=== PATIENT | female | born 1945 | race Caucasian/White ===

== ENCOUNTER 2016-08-03 20:26 | Inpatient (IN) | payer MEDICARE ==
[2016-08-03] MEDS ORDERED: Sodium Chloride 0.9% 1000 ML 1,000 ML ONE (20:31)
[2016-08-03] MEDS ORDERED: Sodium Chloride 0.9% 1000 ML 1,000 ML IV SCH (20:45)
[2016-08-03 21:10] LABS: BASOPHIL % 0.2 % (0.0-0.4); Eosinophil % 1.2 % (0.00-5.0); Lymphocytes % 22.9 % (24.0-44.0); Mean Cell Volume 96.7 fl (78-100); Mean Corpuscular Hemoglobin 32.4 pg (26-32); Mean Platelet Volume 9.4 fl (6-9.5); Monocytes % 8.7 % (0.0-12.0); Platelet Count 215 K/mm3 (150-450); Red Blood Count 4.29 M/mm3 (4.1-5.4); White Blood Count 8.1 K/mm3 (4.0-10.5)
[2016-08-03 21:14] LABS: Collection Type CATH
[2016-08-03 21:15] LABS: ADD URINE CULTURE? NO (NO); COMPLETE URINE MICROSCOPIC? NO
--- NOTE | 2016-08-03 21:22 | ERPHSYRPT ---
- History of Present Illness Time Seen by Provider: 08/03/16 21:20 Source: patient, family Exam Limitations: no limitations Patient Subjective Stated Complaint: states she has been weak and shaky for past few days some stomach pains and chest pains Triage Nursing Assessment: pt alert and oriented x3, very jittery hands shaking while shes laying in bed talking, lung sounds clear diminished, edema bilateral hands and feet Physician History: states she has been weak and shaky for past few days some stomach pains and chest pains c/o anxiety, feeling weak all over Timing/Duration: day(s) (2-3 days) Associated Symptoms: abdominal pain, chest pain Allergies/Adverse Reactions: ezetimibe [From Zetia] Allergy (Verified 10/30/11 11:51) Home Medications: Blood-Glucose Meter [[employer] Ultramini] 1 strip PRN 08/03/16 [History] Citalopram Hydrobromide [Citalopram HBr] 40 mg PO DAILY 08/03/16 [History] Clonazepam [Klonopin] 1 mg PO BID 08/03/16 [History] Clopidogrel Bisulfate 75 mg [PLAVIX 75 MG Tablet] 1 tab PO DAILY 08/03/16 [History] Clopidogrel Bisulfate [Plavix] 75 mg PO DAILY 08/03/16 [History] Dextrose [Glucose] 4 tab PO DAILY 08/03/16 [History] Diltiazem HCl [Cardizem Cd] 120 mg PO DAILY 08/03/16 [History] Eluxadoline [Viberzi] 75 mg PO BID 08/03/16 [History] Gabapentin 300 mg PO BID 08/03/16 [History] Hydrochlorothiazide 12.5 mg PO DAILY 08/03/16 [History] Insulin Aspart [Novolog Flexpen] 15 units SQ DAILY 08/03/16 [History] Insulin Aspart [NovoLOG Insulin] 15 unit SQ QAM 08/03/16 [History] Lisinopril 20 mg [Zestril 20 MG] 20 mg PO BID 08/03/16 [History] Loperamide HCl [Loperamide] 2 mg PO Q4H 08/03/16 [History] Meloxicam 7.5 mg [Mobic 7.5 MG] 1 tab PO DAILY 08/03/16 [History] Mirtazapine 30 mg [Remeron 30 mg] 30 mg PO QHS 08/03/16 [History] Naproxen 250 mg PO BID 08/03/16 [History] Omeprazole 40 mg PO DAILY 08/03/16 [History] Oxybutynin Chloride 5 mg PO BID 08/03/16 [History] Primidone 50 MG [Mysoline 50Mg] 50 mg PO TID 08/03/16 [History] Ropinirole HCl [Requip] 1 mg PO QHS 08/03/16 [History] Simvastatin 10 mg PO DAILY 08/03/16 [History] Sitagliptin Phosphate 50 MG [Januvia 50 MG] 1 tab PO DAILY 08/03/16 [ History] Tizanidine HCl 4 mg PO QHS 08/03/16 [History] Hx Tetanus, Diphtheria Vaccination/Date Given: Yes Hx Influenza Vaccination/Date Given: Yes Hx Pneumococcal Vaccination/Date Given: Yes Immunizations Up to Date: Yes - Review of Systems Constitutional: Fatigue, Weakness, No Fever, No Chills Eyes: No Symptoms Ears, Nose, & Throat: No Symptoms Respiratory: No Cough, No Dyspnea Cardiac: Chest Pain, No Edema, No Syncope Abdominal/Gastrointestinal: Abdominal Pain, No Nausea, No Vomiting, No Diarrhea Genitourinary Symptoms: No Dysuria Musculoskeletal: No Back Pain, No Neck Pain Skin: No Rash Neurological: No Dizziness, No Focal Weakness, No Sensory Changes Psychological: No Symptoms Endocrine: No Symptoms All Other Systems: Reviewed and Negative - Past Medical History Pertinent Past Medical History: Yes Neurological History: No Pertinent History ENT History: No Pertinent History Cardiac History: High Cholesterol, Hypertension Respiratory History: COPD Endocrine Medical History: Diabetes Type II Musculoskeletal History: No Pertinent History GI Medical History: No Pertinent History History: No Pertinent History Psycho-Social History: Depression Female Reproductive Disorders: No Pertinent History - Past Surgical History Past Surgical History: Yes Neuro Surgical History: No Pertinent History Cardiac: No Pertinent History Respiratory: No Pertinent History Gastrointestinal: Cholecystectomy Genitourinary: No Pertinent History Musculoskeletal: Orthopedic Surgery Female Surgical History: No Pertinent History Other Surgical History: left elbow and left shoulder surgery. - Social History Smoking Status: Current every day smoker Exposure to second hand smoke: No Drug Use: none Patient Lives Alone: No - Female History Hx Now: No - Nursing Vital Signs Nursing Vital Signs: Initial Vital Signs Temperature 99.2 F Temperature Source Oral Pulse Rate 90 Respiratory Rate 16 Blood Pressure [] 144/64 Pain Intensity 0 - Physical Exam General Appearance: no apparent distress, alert Eye Exam: PERRL/EOMI, eyes nml inspection Ears, Nose, Throat Exam: normal ENT inspection, TMs normal, pharynx normal, moist mucous membranes Neck Exam: normal inspection, non-tender, supple, full range of motion Respiratory Exam: normal breath sounds, lungs clear, No respiratory distress Cardiovascular Exam: regular rate/rhythm, normal heart sounds, normal peripheral pulses Gastrointestinal/Abdomen Exam: soft, normal bowel sounds, No tenderness, No mass Back Exam: normal inspection, normal range of motion, No CVA tenderness, No vertebral tenderness Extremity Exam: normal inspection, normal range of motion, pelvis stable Neurologic Exam: alert, oriented x 3, cooperative, normal mood/affect, nml cerebellar function, nml station & gait, sensation nml, No motor deficits Skin Exam: normal color, warm, dry, No rash Lymphatic Exam: No adenopathy SpO2: 96 Oxygen Delivery: Room Air - Course Nursing assessment & vital signs reviewed: Yes EKG Interpreted by Me: Sinus Rhythm, Other (paced rhythm) Rhythm Strip: Normal Sinus Rhythm - Radiology Exams Chest X-ray Interpretation: Reviewed by me, Negative, No Pneumonia, No Pneumothorax Ordered Tests: Active Orders 24 hr Category Date Time Status Bid Analyst STAT Care 08/03/16 20:58 Active EKG-ER Only STAT Care 08/03/16 20:57 Active IV Insertion STAT Care 08/03/16 20:58 Active CHEST 1 VIEW (PORTABLE) Stat Exams 08/03/16 20:44 Taken HEAD WITHOUT CONTRAST [CT] Stat Exams 08/03/16 22:11 Taken CBC W DIFF Stat Lab 08/03/16 21:04 Completed CMP Stat Lab 08/03/16 21:04 Completed UA W/RFX UR CULTURE Stat Lab 08/03/16 21:04 Completed Transfer Order Routine Transfer 08/03/16 23:08 Ordered Medication Summary Generic Name Dose Route Start Last Admin Trade Name Freq PRN Reason Stop Dose Admin Sodium Chloride 1,000 mls @ 100 mls/hr 08/03/16 20:45 08/03/16 20:55 Sodium Chloride 0.9% 1000 Ml IV 09/02/16 20:44 100 mls/hr .Q10H NERIS Administration Discontinued Medications Generic Name Dose Route Start Last Admin Trade Name Ester PRN Reason Stop Dose Admin Sodium Chloride Confirm 08/03/16 20:31 Sodium Chloride 0.9% 1000 Ml Administered 08/03/16 20:32 Dose 1,000 mls @ ud .ROUTE .STK-MED ONE Lorazepam Confirm 08/03/16 22:01 Ativan 2 Mg/1 Ml Vial Administered 08/03/16 22:02 Dose 2 mg .ROUTE .STK-MED ONE Lorazepam Confirm 08/03/16 22:08 Ativan 2 Mg/1 Ml Vial Administered 08/03/16 22:09 Dose 2 mg .ROUTE .STK-MED ONE Lorazepam 1 mg 08/03/16 22:44 08/03/16 22:47 Ativan 2 Mg/1 Ml Vial IV 08/03/16 22:45 1 mg STAT ONE Administration Lorazepam 2 mg 08/03/16 22:44 08/03/16 22:47 Ativan 2 Mg/1 Ml Vial IV 08/03/16 22:45 2 mg STAT ONE Administration Lab/Rad Data: Laboratory Result Diagrams 08/03/16 21:04 08/03/16 21:04 Laboratory Results 08/03/16 08/03/16 08/03/16 Range/Units 21:04 21:04 21:04 WBC 8.1 (4.0-10.5) K/mm3 RBC 4.29 (4.1-5.4) M/mm3 Hgb 13.9 (12.0-16.0) gm/dl Hct 41.5 (35-47) % MCV 96.7 (78-100) fl MCH 32.4 H (26-32) pg MCHC 33.5 (32-36) g/dl RDW 14.0 (11.5-14.0) % Plt Count 215 (150-450) K/mm3 MPV 9.4 (6-9.5) fl Gran % 67.0 H (36.0-66.0) % Lymphocytes % 22.9 L (24.0-44.0) % Monocytes % 8.7 (0.0-12.0) % Eosinophils % 1.2 (0.00-5.0) % Basophils % 0.2 (0.0-0.4) % Basophils # 0.02 (0-0.4) Sodium 140 (136-145) mEq/L Potassium 5.2 H (3.5-5.1) mEq/L Chloride 104 (98-107) mEq/L Carbon Dioxide 31.1 (21-32) mEq/L Anion Gap 10.0 (5-15) MEQ/L BUN 8 L (9-20) mg/dL Creatinine 1.15 (0.55-1.30) mg/dl Estimated GFR 49 ML/MIN Glucose 205 H (70-110) MG/DL Calcium 9.2 (8.5-10.1) mg/dL Total Bilirubin 0.3 (0.2-1.0) mg/dL AST 43 H (15-37) U/L ALT 49 (12-78) U/L Alkaline Phosphatase 120 H (46-116) U/L Serum Total Protein 6.2 L (6.4-8.2) gm/dL Albumin 3.4 (3.4-5.0) g/dL Ur Collection Type CATH Urine Color YELLOW (YELLOW) Urine Appearance CLEAR (CLEAR) Urine pH 7.0 (5-6) Ur Specific [place] 1.015 (1.005-1.025) Urine Protein NEGATIVE (Negative) Urine Glucose (UA) NEGATIVE (NEGATIVE) mg/dL Urine Ketones NEGATIVE (NEGATIVE) Urine Nitrite NEGATIVE (NEGATIVE) Urine Bilirubin NEGATIVE (NEGATIVE) Urine Urobilinogen 0.2 (0-1) mg/dL Urine WBC (Auto) NEGATIVE (NEGATIVE) Urine RBC (Auto) NEGATIVE (0-5) [place]/ul Influenza Type A Ag (NEGATIVE) Influenza Type B Ag (NEGATIVE) RSV (PCR) (Negative) Specimen Received [id number] 08/03/16 Range/Units 20:50 WBC (4.0-10.5) K/mm3 RBC (4.1-5.4) M/mm3 Hgb (12.0-16.0) gm/dl Hct (35-47) % MCV (78-100) fl MCH (26-32) pg MCHC (32-36) g/dl RDW (11.5-14.0) % Plt Count (150-450) K/mm3 MPV (6-9.5) fl Gran % (36.0-66.0) % Lymphocytes % (24.0-44.0) % Monocytes % (0.0-12.0) % Eosinophils % (0.00-5.0) % Basophils % (0.0-0.4) % Basophils # (0-0.4) Sodium (136-145) mEq/L Potassium (3.5-5.1) mEq/L Chloride (98-107) mEq/L Carbon Dioxide (21-32) mEq/L Anion Gap (5-15) MEQ/L BUN (9-20) mg/dL Creatinine (0.55-1.30) mg/dl Estimated GFR ML/MIN Glucose (70-110) MG/DL Calcium (8.5-10.1) mg/dL Total Bilirubin (0.2-1.0) mg/dL AST (15-37) U/L ALT (12-78) U/L Alkaline Phosphatase (46-116) U/L Serum Total Protein (6.4-8.2) gm/dL Albumin (3.4-5.0) g/dL Ur Collection Type Urine Color (YELLOW) Urine Appearance (CLEAR) Urine pH (5-6) Ur Specific [place] (1.005-1.025) Urine Protein (Negative) Urine Glucose (UA) (NEGATIVE) mg/dL Urine Ketones (NEGATIVE) Urine Nitrite (NEGATIVE) Urine Bilirubin (NEGATIVE) Urine Urobilinogen (0-1) mg/dL Urine WBC (Auto) (NEGATIVE) Urine RBC (Auto) (0-5) [place]/ul Influenza Type A Ag NEGATIVE (NEGATIVE) Influenza Type B Ag NEGATIVE (NEGATIVE) RSV (PCR) NEGATIVE (Negative) Specimen Received - Progress Progress: improved Counseled pt/family regarding: lab results, diagnosis, need for follow-up, rad results - Departure Time of Disposition: 23:14 Departure Disposition: Observation Clinical Impression: Weakness, Muscle spasm Diabetes mellitus Qualifiers: Diabetes mellitus complication status: without complication Diabetes mellitus mcfp insulin use: with terminal superintendent use Hypertension Qualifiers: Hypertension type: essential hypertension Qualified Code(s): I10 - Essential ( primary) hypertension Condition: Stable Critical Care Time: Yes Critical Care Time(excluding separately billable procedures): 30-74 minutes Referrals: MALLY HUERTA MD [Primary Care Provider] -
[2016-08-03 21:27] LABS: ALBUMIN 3.4 g/dL (3.4-5.0); BILIRUBIN,TOTAL 0.3 mg/dL (0.2-1.0); Carbon Dioxide 31.1 mEq/L (21-32); Potassium 5.2 mEq/L (3.5-5.1); Total Protein 6.2 gm/dL (6.4-8.2)
[2016-08-03] MEDS ORDERED: Ativan 2 MG/1 ML VIAL ONE ×2 (22:01→22:08)
[2016-08-03] MEDS ORDERED: Ativan 2 MG/1 ML VIAL IV ONE ×2 (22:44)
[2016-08-04] MEDS ORDERED: NovoLOG Insulin SQ PRN (00:43)
[2016-08-04] MEDS: Sodium Chloride 0.9% 1000 ML 1,000 ML IV SCH ×3 (02:10→16:01)
[2016-08-04] MEDS: Ativan 2 MG/1 ML VIAL IV PRN ×3 (02:16→17:58)
[2016-08-04 05:54] LABS: ALBUMIN 2.7 g/dL (3.4-5.0); ANION GAP 8.7 MEQ/L (5-15); BILIRUBIN,TOTAL 0.3 mg/dL (0.2-1.0); Carbon Dioxide 30.1 mEq/L (21-32); Potassium 4.1 mEq/L (3.5-5.1); Total Protein 5.2 gm/dL (6.4-8.2)
[2016-08-04] MEDS ORDERED: Dex4 Glucose 4 GM TABLET PO PRN (07:56)
[2016-08-04] MEDS ORDERED: IMODIUM 2 MG PO PRN (07:56)
--- NOTE | 2016-08-04 08:11 | XRAY ---
Indication: Chest pain, shakiness, and weakness. Comparison: April 22, 2014. Portable chest again hyperinflated with calcified granulomas and left-sided dual-lead pacemaker. Remaining heart and lungs normal. Bony thorax intact again with osteopenia and old left humeral fracture with partially visualized hardware. Impression: Stable nonacute chest with chronic features.
--- NOTE | 2016-08-04 08:28 | XRAY ---
Indication: Tremors, possible seizure, and confusion. Multiple contiguous axial images obtained through the head without contrast. Comparison: March 28, 2013. 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 No acute intracranial hemorrhage, hydrocephalus, or mass effect. Bony calvarium intact. Visualized paranasal sinuses and mastoid air cells are pneumatized and clear. Impression: Stable nonacute senile brain with old left occipital lobe infarct. Comment: Preliminary interpretation was made by [facility]. No discrepancy. CTDI 57.57
[2016-08-04] MEDS: NovoLOG Insulin SQ SCH (08:32)
--- NOTE | 2016-08-04 09:32 | PCM.HP ---
History of Present Illness - Chief Complaint Chief Complaint: Weakness, generalized muscle spasams for 2-3 days History of Present Illness: is a 71 year old female.came to ER with c/o generalised weakness, muscle spasm for 2-3 days and also c/o fever low grade. Denies any nausea, vomiting, - Review of Systems Constitutional: Fever, Chills, Malaise, Weakness Eyes: No Symptoms Ears, Nose, & Throat: No Symptoms Respiratory: No Cough, No Short Of Breath Cardiac: No Chest Pain, No Edema, No Syncope Abdominal/Gastrointestinal: No Abdominal Pain, No Nausea, No Vomiting, No Diarrhea Genitourinary Symptoms: No Dysuria Musculoskeletal: Other (generalised muscle spasm and shakiness), No Back Pain, No Neck Pain Skin: No Rash Neurological: No Dizziness, No Focal Weakness, No Sensory Changes Psychological: No Symptoms Endocrine: No Symptoms Hematologic/Lymphatic: No Symptoms Immunological/Allergic: No Symptoms Medications & Allergies Home Medications: Home Medication List Citalopram Hydrobromide [Citalopram HBr] 40 mg PO DAILY 08/03/16 [History Confirmed 08/03/16] Clonazepam [Klonopin] 1 mg PO BID 08/03/16 [History Confirmed 08/03/16] Clopidogrel Bisulfate 75 mg [PLAVIX 75 MG Tablet] 1 tab PO DAILY 08/03/16 [History Confirmed 08/03/16] Dextrose [Glucose] 4 tab PO DAILY PRN 08/03/16 [History Confirmed 08/03/16] Diltiazem HCl [Cardizem Cd] 120 mg PO DAILY 08/03/16 [History Confirmed 08/03/16 ] Eluxadoline [Viberzi] 75 mg PO BID 08/03/16 [History Confirmed 08/03/16] Gabapentin 300 mg PO BID 08/03/16 [History Confirmed 08/03/16] Hydrochlorothiazide 12.5 mg PO DAILY 08/03/16 [History Confirmed 08/03/16] Insulin Aspart [NovoLOG Insulin] 15 unit SQ QAM 08/03/16 [History Confirmed 08/03/16] Lisinopril 20 mg [Zestril 20 MG] 20 mg PO BID 08/03/16 [History Confirmed 08/03/16] Loperamide HCl [Loperamide] 2 mg PO Q4HPRN PRN 08/03/16 [History Confirmed 08/04] Meloxicam 7.5 mg [Mobic 7.5 MG] 7.5 mg PO DAILY 08/03/16 [History Confirmed 08/04/16] Mirtazapine 30 mg [Remeron 30 mg] 30 mg PO QHS 08/03/16 [History Confirmed 08/03/16] Naproxen 250 mg PO BID 08/03/16 [History Confirmed 08/03/16] Omeprazole 40 mg PO DAILY 08/03/16 [History Confirmed 08/03/16] Oxybutynin Chloride 5 mg PO BID 08/03/16 [History Confirmed 08/03/16] Primidone 50 MG [Mysoline 50Mg] 50 mg PO TID 08/03/16 [History Confirmed 11/12] Ropinirole HCl [Requip] 1 mg PO QHS 08/03/16 [History Confirmed 08/03/16] Simvastatin 10 mg PO DAILY 08/03/16 [History Confirmed 08/03/16] Sitagliptin Phosphate 50 MG [Januvia 50 MG] 50 mg PO DAILY 08/03/16 [ History Confirmed 08/04/16] Tizanidine HCl 4 mg PO QHS 08/03/16 [History Confirmed 08/03/16] Diphenoxylate HCl/Atropine [Diphenoxylate-Atrop 2.5-0.025] 2 tab PO QID [History Confirmed 08/04/16] Allergies/Adverse Reactions: Allergies Allergy/AdvReac Type Severity Reaction Status Date / Time ezetimibe [From Zetia] Allergy Verified 10/30/11 11:51 - Past Medical History Past Medical History: Yes Neurological History: Peripheral Neuropathy, Stroke ENT History: Other Cardiac History: Arrhythmia, High Cholesterol, Hypertension, Other Respiratory History: COPD Endocrine Medical History: Diabetes Type II Musculoskelatal History: Arthritis, Fractures GI Medical History: GERD, Pancreatitis, Other History: No Pertinent History Pyscho-Social History: Depression Reproductive Disorders: No Pertinent History Comment: Irritable Bowel Syndrome, hx of skin CA. 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 Hx of Hepatitis pt unsure which kind - Female History Hx Last Menstrual Period: post Are you now?: No - Past Surgical History Past Surgical History: Yes Neuro Surgical History: No Pertinent History Cardiac History: Pacemaker Respiratory Surgery: No Pertinent History GI Surgical History: Cholecystectomy Genitourinary Surgical Hx: No Pertinent History Musculskeletal Surgical Hx: Orthopedic Surgery Female Surgical History: No Pertinent History Other Surgical History: left elbow and left shoulder surgery with dale placement - Social History Smoking Status: Current every day smoker How long have you smoked: 40 yrs Exposure to second hand smoke: No Alcohol: None Drug Use: none - Physical Exam Vital Signs: Vital Signs - 24 hr Temp Pulse Resp BP BP Pulse Ox 08/04/16 07:23 98.3 F 69 18 140/71 95 08/04/16 04:00 98.4 F 70 14 124/60 93 L 08/04/16 01:25 98.3 F 70 18 125/60 93 L 08/03/16 23:14 96 08/03/16 22:07 90 16 144/64 95 08/03/16 20:27 99.2 F 74 20 205/86 96 General Appearance: no apparent distress, alert Neurologic Exam: alert, oriented x 3, cooperative, normal mood/affect, nml cerebellar function, nml station & gait, sensation nml, No motor deficits Eye Exam: PERRL/EOMI, eyes nml inspection Ears, Nose, Throat Exam: normal ENT inspection, TMs normal, pharynx normal, moist mucous membranes Neck Exam: normal inspection, non-tender, supple, full range of motion Respiratory Exam: normal breath sounds, lungs clear, No respiratory distress Cardiovascular Exam: regular rate/rhythm, normal heart sounds, normal peripheral pulses Gastrointestinal/Abdomen Exam: soft, normal bowel sounds, No tenderness, No mass Back Exam: normal inspection, normal range of motion, No CVA tenderness, No vertebral tenderness Extremity Exam: normal inspection, normal range of motion, pelvis stable Skin Exam: normal color, warm, dry, No rash Lymphatic Exam: No adenopathy Results - Labs Lab/Micro Results: Accuchecks Date 08/04/16 Time 07:18 Accucheck Value: 91 Lab Results-Last 24 Hours 08/04/16 Range/Units 05:19 Sodium 143 (136-145) mEq/L Potassium 4.1 (3.5-5.1) mEq/L Chloride 108 H (98-107) mEq/L Carbon Dioxide 30.1 (21-32) mEq/L Anion Gap 8.7 (5-15) MEQ/L BUN 9 (9-20) mg/dL Creatinine 1.07 (0.55-1.30) mg/dl Estimated GFR 53 ML/MIN Glucose 101 (70-110) MG/DL Calcium 8.4 L (8.5-10.1) mg/dL Total Bilirubin 0.3 (0.2-1.0) mg/dL AST 34 (15-37) U/L ALT 38 (12-78) U/L Alkaline Phosphatase 99 (46-116) U/L Serum Total Protein 5.2 L (6.4-8.2) gm/dL Albumin 2.7 L (3.4-5.0) g/dL Accuchecks Date 08/04/16 Time 07:18 Accucheck Value: 91 Assessment/Plan (1) Muscle spasm Current Visit: Yes Status: Acute Assessment & Plan: Mostlikely due to drug interaction, will hold some of her home meds Code(s): M62.838 - OTHER MUSCLE SPASM (2) Weakness Current Visit: Yes Status: Acute Assessment & Plan: continue present management. Last Vital Signs Temp 98.3 F 08/04/16 07:23 Pulse 69 08/04/16 07:23 Resp 18 08/04/16 07:23 BP 140/71 08/04/16 07:23 Pulse Ox 95 08/04/16 07:23 Allergies ezetimibe [From Zetia] Allergy (Verified 10/30/11 11:51) Active Medications Citalopram Hydrobromide (Celexa 20 Mg) 20 mg PO DAILY NERIS Stop: 09/03/16 09:59 Clonazepam (Klonopin 0.5 Mg) 1 mg PO BID NERIS Stop: 09/03/16 09:59 Clopidogrel Bisulfate (Plavix 75 Mg Tablet) 75 mg PO DAILY NERIS Stop: 09/03/16 09:59 Diltiazem HCl (Cardizem Cd 120 Mg) 120 mg PO DAILY NERIS Stop: 09/03/16 09:59 Enoxaparin Sodium (Enoxaparin Sodium) 40 mg SQ DAILY NERIS Stop: 09/03/16 09:59 Gabapentin (Neurontin 300 Mg) 300 mg PO BID [facility] Stop: 09/03/16 09:59 Glucose (Dex4 Glucose 4 Gm Tablet) 4 tab PO DAILY PRN PRN PRN Reason: HYPOGLYCEMIA Stop: 09/03/16 07:55 Hydrochlorothiazide (Hydrodiuril 25 Mg) 12.5 mg PO DAILY [facility] Stop: 09/03/16 09:59 Sodium Chloride (Sodium Chloride 0.9% 1000 Ml) 1,000 mls @ 100 mls/hr IV .Q10H NERIS Stop: 09/03/16 00:42 Last Admin: 08/04/16 06:20 Dose: 100 mls/hr Insulin Aspart (Novolog Insulin) 0 unit SQ UD PRN PRN Reason: HYPERGLYCEMIA Stop: 09/03/16 00:42 Insulin Aspart (Novolog Insulin) 15 unit SQ AMINSULIN NERIS Stop: 09/03/16 07:59 Last Admin: 08/04/16 08:32 Dose: Not Given Lisinopril (Zestril 20 Mg) 20 mg PO BID [facility] Stop: 09/03/16 09:59 Loperamide HCl (Imodium 2 Mg) 2 mg PO Q4HPRN PRN PRN Reason: DIARRHEA Stop: 09/03/16 07:55 Lorazepam (Ativan 2 Mg/1 Ml Vial) 1 mg IV PRN PRN PRN Reason: ANXIETY/AGITATION Stop: 09/03/16 00:42 Last Admin: 08/04/16 02:16 Dose: 1 mg Meloxicam (Mobic 7.5 Mg) 7.5 mg PO DAILY [facility] Stop: 09/03/16 09:59 Naproxen (Naprosyn 500 Mg) 250 mg PO BID [facility] Stop: 09/03/16 09:59 Pantoprazole Sodium (Protonix 40mg Tablet) 40 mg PO DAILY [facility] Stop: 09/03/16 09:59 Primidone (Mysoline 50mg) 50 mg PO TID [facility] Stop: 09/03/16 09:59 Ropinirole HCl (Requip 0.5 Mg) 1 mg PO HS [facility] Stop: 09/03/16 21:59 Sitagliptin Phosphate (Januvia 50 Mg) 50 mg PO DAILY [facility] Stop: 09/03/16 09:59 Intake & Output 08/03/16 08/04/16 11:59 11:59 Intake Total 770 Output Total 300 Balance 470 Weight 64.818 kg Orders 08/04/16 00:43 Up Ad Katie ROUTINE Accucheck ACHS Admission/Status Order ROUTINE Code Status Order ROUTINE Fall Protocol Q1H IV Care Q6H Neuro Checks Q4H Josiah Porter, Apply ROUTINE Telemetry ROUTINE Insulin Aspart [NovoLOG Insulin] See Dose Instructions SQ UD PRN Lorazepam 2 mg/1 ml [Ativan 2 MG/1 ML VIAL] 1 mg IV PRN PRN NaCl 0.9% 1000 ml [Sodium Chloride 0.9% 1000 ML] 1,000 ml IV 100 mls/hr 08/04/16 07:56 Dextrose 4 gm Tablet [Dex4 Glucose 4 GM TABLET] 4 tab PO DAILY PRN PRN Loperamide HCl 2 mg [Imodium 2 mg] 2 mg PO Q4HPRN PRN 08/04/16 08:00 Insulin Aspart [NovoLOG Insulin] 15 unit SQ AMINSULIN 08/04/16 09:00 Kidney Puller/Discharge Plan ROUTINE Nutritional Admission Screen once OT Screen per Nursing Assess ONCE PT Screen per Nursing Assess ONCE 08/04/16 10:00 Citalopram Hydrobromide 20 mg* [ceLEXa 20 MG] 20 mg PO DAILY Clonazepam 0.5 mg [Klonopin 0.5 MG] 1 mg PO BID Clopidogrel Bisulfate 75 mg [PLAVIX 75 MG Tablet] 75 mg PO DAILY Diltiazem HCl 120 mg [Cardizem CD 120 MG] 120 mg PO DAILY Enoxaparin Sodium [Enoxaparin Sodium] 40 mg SQ DAILY Gabapentin 300 mg [Neurontin 300 mg] 300 mg PO BID Hydrochlorothiazide 25 mg [hydroDIURIL 25 MG] 12.5 mg PO DAILY Lisinopril 20 mg [Zestril 20 MG] 20 mg PO BID Meloxicam 7.5 mg [Mobic 7.5 MG] 7.5 mg PO DAILY Naproxen 500 mg [Naprosyn 500 MG] 250 mg PO BID PANTOPRAZOLE 40 mg Tablet [Protonix 40MG Tablet] 40 mg PO DAILY Primidone 50 MG [Mysoline 50Mg] 50 mg PO TID Sitagliptin Phosphate 50 MG [Januvia 50 MG] 50 mg PO DAILY 08/04/16 22:00 Ropinirole HCl 0.5 mg [Requip 0.5 MG] 1 mg PO HS 08/04/16 Breakfast 1800 Calorie ADA Lab Tests 08/03/16 08/03/16 08/03/16 20:50 21:04 21:04 WBC 8.1 RBC 4.29 Hgb 13.9 Hct 41.5 MCV 96.7 MCH 32.4 H MCHC 33.5 RDW 14.0 Plt Count 215 MPV 9.4 Gran % 67.0 H Lymphocytes % 22.9 L Monocytes % 8.7 Eosinophils % 1.2 Basophils % 0.2 Basophils # 0.02 Sodium 140 Potassium 5.2 H Chloride 104 Carbon Dioxide 31.1 Anion Gap 10.0 BUN 8 L Creatinine 1.15 Estimated GFR 49 Glucose 205 H Calcium 9.2 Total Bilirubin 0.3 AST 43 H ALT 49 Alkaline Phosphatase 120 H Serum Total Protein 6.2 L Albumin 3.4 Ur Collection Type Urine Color Urine Appearance Urine pH Ur Specific [place] Urine Protein Urine Glucose (UA) Urine Ketones Urine Nitrite Urine Bilirubin Urine Urobilinogen Urine WBC (Auto) Urine RBC (Auto) Influenza Type A Ag NEGATIVE Influenza Type B Ag NEGATIVE RSV (PCR) NEGATIVE Specimen Received 08/03/16 08/04/16 21:04 05:19 WBC RBC Hgb Hct MCV MCH MCHC RDW Plt Count MPV Gran % Lymphocytes % Monocytes % Eosinophils % Basophils % Basophils # Sodium 143 Potassium 4.1 Chloride 108 H Carbon Dioxide 30.1 Anion Gap 8.7 BUN 9 Creatinine 1.07 Estimated GFR 53 Glucose 101 Calcium 8.4 L Total Bilirubin 0.3 AST 34 ALT 38 Alkaline Phosphatase 99 Serum Total Protein 5.2 L Albumin 2.7 L Ur Collection Type CATH Urine Color YELLOW Urine Appearance CLEAR Urine pH 7.0 Ur Specific [place] 1.015 Urine Protein NEGATIVE Urine Glucose (UA) NEGATIVE Urine Ketones NEGATIVE Urine Nitrite NEGATIVE Urine Bilirubin NEGATIVE Urine Urobilinogen 0.2 Urine WBC (Auto) NEGATIVE Urine RBC (Auto) NEGATIVE Influenza Type A Ag Influenza Type B Ag RSV (PCR) Specimen Received [id number] Code(s): R53.1 - WEAKNESS (3) Diabetes mellitus Current Visit: Yes Status: Chronic Qualifiers: Diabetes mellitus complication status: without complication Diabetes mellitus termite technician insulin use: with jail use Code(s): E11.9 - TYPE 2 DIABETES MELLITUS WITHOUT COMPLICATIONS (4) Hypertension Current Visit: Yes Status: Chronic Qualifiers: Hypertension type: essential hypertension Qualified Code(s): I10 - Essential (primary) hypertension Code(s): I10 - ESSENTIAL (PRIMARY) HYPERTENSION (5) Bradyarrhythmia Current Visit: Yes Status: Chronic Assessment & Plan: s/p pacemaker Code(s): I49.8 - OTHER SPECIFIED CARDIAC ARRHYTHMIAS
[2016-08-04] MEDS ORDERED: NON-FORMULARY ITEM (Omeprazole [Omeprazole] 40 MG) PO SCH (10:00)
[2016-08-04] MEDS ORDERED: NON-FORMULARY ITEM (Hydrochlorothiazide [Hydrochlorothiazide] 12.5 MG) PO SCH (10:00)
[2016-08-04] MEDS ORDERED: NON-FORMULARY ITEM (Citalopram Hydrobromide [Citalopram Hbr] 40 MG) PO SCH (10:00)
[2016-08-04] MEDS ORDERED: NAPROXEN 250 MG PO SCH (10:00)
[2016-08-04] MEDS ORDERED: NON-FORMULARY ITEM (Clonazepam [Klonopin] 1 MG) PO SCH (10:00)
[2016-08-04] MEDS: MYSOLINE 50MG PO SCH ×3 (10:29→21:41)
[2016-08-04] MEDS: Januvia 50 MG PO SCH (10:29)
[2016-08-04] MEDS: ENOXAPARIN SODIUM SQ SCH (10:29)
[2016-08-04] MEDS: Klonopin 0.5 MG PO SCH ×2 (10:29→21:40)
[2016-08-04] MEDS: hydroDIURIL 25 MG PO SCH (10:30)
[2016-08-04] MEDS: PLAVIX 75 MG Tablet PO SCH (10:31)
[2016-08-04] MEDS: Protonix 40MG Tablet PO SCH (10:31)
[2016-08-04] MEDS: Mobic 7.5 MG PO SCH (10:31)
[2016-08-04] MEDS: Zestril 20 MG PO SCH ×2 (10:31→21:41)
[2016-08-04] MEDS: Cardizem CD 120 MG PO SCH (10:31)
[2016-08-04] MEDS: ceLEXa 20 MG PO SCH (10:32)
[2016-08-04] MEDS: Naprosyn 500 MG PO SCH ×2 (10:32→21:41)
[2016-08-04] MEDS: NEURONTIN 300 MG PO SCH ×2 (10:32→21:42)
[2016-08-04] MEDS: Requip 0.5 MG PO SCH (21:40)
[2016-08-04] MEDS ORDERED: NON-FORMULARY ITEM (Ropinirole Hcl [Requip] 1 MG) PO SCH (22:00)
[2016-08-05] MEDS: Sodium Chloride 0.9% 1000 ML 1,000 ML IV SCH ×3 (01:49→21:27)
[2016-08-05] MEDS: NovoLOG Insulin SQ SCH (07:57)
[2016-08-05] MEDS: ENOXAPARIN SODIUM SQ SCH (07:58)
[2016-08-05] MEDS: Protonix 40MG Tablet PO SCH (08:00)
[2016-08-05] MEDS: Mobic 7.5 MG PO SCH (08:00)
[2016-08-05] MEDS: Zestril 20 MG PO SCH ×2 (08:00→21:26)
[2016-08-05] MEDS: ceLEXa 20 MG PO SCH (08:00)
[2016-08-05] MEDS: Naprosyn 500 MG PO SCH ×2 (08:00→21:25)
[2016-08-05] MEDS: Januvia 50 MG PO SCH (08:02)
[2016-08-05] MEDS: PLAVIX 75 MG Tablet PO SCH (08:02)
[2016-08-05] MEDS: hydroDIURIL 25 MG PO SCH (08:02)
[2016-08-05] MEDS: Klonopin 0.5 MG PO SCH ×2 (08:02→21:24)
[2016-08-05] MEDS: NEURONTIN 300 MG PO SCH ×2 (08:02→21:25)
[2016-08-05] MEDS: MYSOLINE 50MG PO SCH ×3 (08:02→21:25)
[2016-08-05] MEDS: Cardizem CD 120 MG PO SCH (08:02)
[2016-08-05] MEDS: Ativan 2 MG/1 ML VIAL IV PRN ×3 (08:12→17:17)
[2016-08-05] MEDS: Requip 0.5 MG PO SCH (21:25)
[2016-08-06] MEDS: Sodium Chloride 0.9% 1000 ML 1,000 ML IV SCH (06:39)
[2016-08-06] MEDS: NovoLOG Insulin SQ SCH (08:00)
[2016-08-06] MEDS: Ativan 2 MG/1 ML VIAL IV PRN (08:34)
[2016-08-06] MEDS: hydroDIURIL 25 MG PO SCH (10:19)
[2016-08-06] MEDS: NEURONTIN 300 MG PO SCH (10:20)
[2016-08-06] MEDS: Cardizem CD 120 MG PO SCH (10:21)
[2016-08-06] MEDS: Januvia 50 MG PO SCH (10:21)
[2016-08-06] MEDS: ENOXAPARIN SODIUM SQ SCH (10:21)
[2016-08-06] MEDS: Protonix 40MG Tablet PO SCH (10:21)
[2016-08-06] MEDS: Klonopin 0.5 MG PO SCH (10:22)
[2016-08-06] MEDS: ceLEXa 20 MG PO SCH (10:22)
[2016-08-06] MEDS: PLAVIX 75 MG Tablet PO SCH (10:22)
[2016-08-06] MEDS: Zestril 20 MG PO SCH (10:23)
[2016-08-06] MEDS: Mobic 7.5 MG PO SCH (10:23)
[2016-08-06 12:16] VITALS: BP 192/86; PULSE 68; O2SAT 94
--- NOTE | 2016-08-06 13:36 | PCM.NOTE ---
Date and Time: 08/05/16 3394 Subjective Assessment: late entry: Patient is still having spasm - Review of Systems Constitutional: No Fever, No Chills Eyes: No Symptoms Ears, Nose, & Throat: No Symptoms Respiratory: No Cough, No Short Of Breath Cardiac: No Chest Pain, No Edema, No Syncope Abdominal/Gastrointestinal: No Abdominal Pain, No Nausea, No Vomiting, No Diarrhea Genitourinary Symptoms: No Dysuria Musculoskeletal: No Back Pain, No Neck Pain Skin: No Rash Neurological: Tremors, No Dizziness, No Focal Weakness, No Sensory Changes Psychological: No Symptoms Endocrine: No Symptoms Hematologic/Lymphatic: No Symptoms Immunological/Allergic: No Symptoms Objective Exam General Appearance: no apparent distress, alert Neurologic Exam: alert, oriented x 3, cooperative, normal mood/affect, nml cerebellar function, sensation nml, No motor deficits Skin Exam: normal color, warm, dry Eye Exam: PERRL, EOMI, eyes nml inspection Ears, Nose, Throat Exam: normal ENT inspection, pharynx normal, moist mucous membranes Neck Exam: normal inspection, non-tender, supple, full range of motion Respiratory Exam: normal breath sounds, lungs clear, No respiratory distress Cardiovascular Exam: regular rate/rhythm, normal heart sounds Gastrointestinal/Abdomen Exam: soft, No tenderness, No mass Extremity Exam: normal inspection, normal range of motion Back Exam: normal inspection, normal range of motion, No CVA tenderness, No vertebral tenderness Pelvic Exam: deferred Rectal Exam: deferred OBJECTIVE DATA Vital Signs: Vital Signs - 24 hr Temp Pulse Resp BP Pulse Ox 08/06/16 12:00 99.0 F 68 18 192/86 94 L 08/06/16 07:27 98.4 F 71 20 133/63 95 08/06/16 04:00 98.6 F 80 14 170/60 92 L 08/06/16 00:25 98.7 F 74 14 165/71 94 L 08/05/16 23:48 98.8 F 73 14 155/69 94 L 08/05/16 20:00 98.8 F 73 14 155/69 94 L 08/05/16 16:00 98.8 F 84 17 187/82 94 L Intake and Output: Intake & Output 08/04/16 08/05/16 08/06/16 08/07/16 11:59 11:59 11:59 11:59 Intake Total 3389 Output Total 3200 Balance 189 Lab Results: Accuchecks Date 08/06/16 Date 08/06/16 Date 08/05/16 Date 08/05/16 Time 11:30 Time 07:00 Time 16:30 Time 16:04 Accucheck Value: 119 Accucheck Value: 96 Accucheck Value: 156 Accucheck Value: 156 Assessment/Plan (1) Muscle spasm Status: Acute Code(s): M62.838 - OTHER MUSCLE SPASM (2) Weakness Status: Resolved Code(s): R53.1 - WEAKNESS (3) Diabetes mellitus Status: Chronic Qualifiers: Diabetes mellitus complication status: without complication Diabetes mellitus nursing home insulin use: with nursing home use Code(s): E11.9 - TYPE 2 DIABETES MELLITUS WITHOUT COMPLICATIONS (4) Hypertension Status: Chronic Qualifiers: Hypertension type: essential hypertension Qualified Code(s): I10 - Essential (primary) hypertension Code(s): I10 - ESSENTIAL (PRIMARY) HYPERTENSION (5) Bradyarrhythmia Status: Chronic Code(s): I49.8 - OTHER SPECIFIED CARDIAC ARRHYTHMIAS
--- NOTE | 2016-08-06 13:38 | PCM.DS ---
Discharge Summary Date of Admission: 08/05/16 09:00 Admitting Physician: MALLY HUERTA Consults: Consults on Case 08/06/16 08:56 Consult Neurology ROUTINE Primary Care Provider: MALLY HUERTA Allergies Allergies ezetimibe [From Zetia] Allergy (Verified 10/30/11 11:51) Hospital Summary - Hospital Course Hospital Course: Chief Complaint Diagnosis TREMORS, WEAKNESS Allergies Allergy/AdvReac Type Severity Reaction Status Date / Time ezetimibe [From Zetia] Allergy Verified 10/30/11 11:51 Vital Signs (Last 24 hours) Temp Pulse Resp BP Pulse Ox 08/06/16 12:00 99.0 F 68 18 192/86 94 L 08/06/16 07:27 98.4 F 71 20 133/63 95 08/06/16 04:00 98.6 F 80 14 170/60 92 L 08/06/16 00:25 98.7 F 74 14 165/71 94 L 08/05/16 23:48 98.8 F 73 14 155/69 94 L 08/05/16 20:00 98.8 F 73 14 155/69 94 L 08/05/16 16:00 98.8 F 84 17 187/82 94 L Home Medications Medication Instructions Recorded Confirmed Last Taken Type Citalopram Hydrobromide 40 mg PO DAILY 08/03/16 08/03/16 Unknown History [Citalopram HBr] Clonazepam [Klonopin] 1 mg PO BID 08/03/16 08/03/16 Unknown History Clopidogrel Bisulfate 75 mg 1 tab PO DAILY 08/03/16 08/03/16 Unknown History [PLAVIX 75 MG Tablet] Dextrose [Glucose] 4 tab PO DAILY PRN 08/03/16 08/03/16 Unknown History Diltiazem HCl [Cardizem Cd] 120 mg PO DAILY 08/03/16 08/03/16 Unknown History Eluxadoline [Viberzi] 75 mg PO BID 08/03/16 08/03/16 Unknown History Gabapentin 300 mg PO BID 08/03/16 08/03/16 Unknown History Hydrochlorothiazide 12.5 mg PO DAILY 08/03/16 08/03/16 Unknown History Insulin Aspart [NovoLOG 15 unit SQ QAM 08/03/16 08/03/16 Unknown History Insulin] Lisinopril 20 mg [Zestril 20 20 mg PO BID 08/03/16 08/03/16 Unknown History MG] Loperamide HCl [Loperamide] 2 mg PO Q4HPRN PRN 08/03/16 08/04/16 Unknown History Meloxicam 7.5 mg [Mobic 7.5 7.5 mg PO DAILY 08/03/16 08/04/16 Unknown History MG] Mirtazapine 30 mg [Remeron 30 30 mg PO QHS 08/03/16 08/03/16 Unknown History mg] Naproxen 250 mg PO BID 08/03/16 08/03/16 Unknown History Omeprazole 40 mg PO DAILY 08/03/16 08/03/16 Unknown History Oxybutynin Chloride 5 mg PO BID 08/03/16 08/03/16 Unknown History Primidone 50 MG [Mysoline 50Mg] 50 mg PO TID 08/03/16 08/03/16 Unknown History Ropinirole HCl [Requip] 1 mg PO QHS 08/03/16 08/03/16 Unknown History Simvastatin 10 mg PO DAILY 08/03/16 08/03/16 Unknown History Sitagliptin Phosphate 50 MG 50 mg PO DAILY 08/03/16 08/04/16 Unknown History [Januvia 50 MG] Tizanidine HCl 4 mg PO QHS 08/03/16 08/03/16 Unknown History Diphenoxylate HCl/Atropine 2 tab PO QID 08/04/16 08/04/16 Unknown History [Diphenoxylate-Atrop 2.5-0.025] Current Medications Discontinued Medications Generic Name Dose Route Start Last Admin Trade Name Freq PRN Reason Stop Dose Admin Citalopram Hydrobromide 20 mg 08/04/16 10:00 08/06/16 10:22 Celexa 20 Mg PO 09/03/16 09:59 20 mg DAILY NERIS Administration Clonazepam 1 mg 08/04/16 10:00 08/06/16 10:22 Klonopin 0.5 Mg PO 09/03/16 09:59 1 mg BID NERIS Administration Clopidogrel Bisulfate 75 mg 08/04/16 10:00 08/06/16 10:22 Plavix 75 Mg Tablet PO 09/03/16 09:59 75 mg DAILY NERIS Administration Diltiazem HCl 120 mg 08/04/16 10:00 08/06/16 10:21 Cardizem Cd 120 Mg PO 09/03/16 09:59 120 mg DAILY NERIS Administration Enoxaparin Sodium 40 mg 08/04/16 10:00 08/06/16 10:21 Enoxaparin Sodium SQ 09/03/16 09:59 40 mg DAILY NERIS Administration Gabapentin 300 mg 08/04/16 10:00 08/06/16 10:20 Neurontin 300 Mg PO 09/03/16 09:59 300 mg BID NERIS Administration Glucose 4 tab 08/04/16 07:56 08/05/16 11:27 Dex4 Glucose 4 Gm Tablet PO 09/03/16 07:55 4 tab DAILY PRN PRN Administration HYPOGLYCEMIA Hydrochlorothiazide 12.5 mg 08/04/16 10:00 08/06/16 10:19 Hydrodiuril 25 Mg PO 09/03/16 09:59 12.5 mg DAILY NERIS Administration Sodium Chloride Confirm 08/03/16 20:31 Sodium Chloride 0.9% 1000 Ml Administered 08/03/16 20:32 Dose 1,000 mls @ ud .ROUTE .STK-MED ONE Sodium Chloride 1,000 mls @ 100 mls/hr 08/03/16 20:45 08/03/16 20:55 Sodium Chloride 0.9% 1000 Ml IV 09/02/16 20:44 100 mls/hr .Q10H NERIS Administration Sodium Chloride 1,000 mls @ 100 mls/hr 08/04/16 00:43 08/06/16 06:39 Sodium Chloride 0.9% 1000 Ml IV 09/03/16 00:42 100 mls/hr .Q10H NERIS Administration Insulin Aspart 0 unit 08/04/16 00:43 08/05/16 22:15 Novolog Insulin SQ 09/03/16 00:42 2 unit UD PRN Administration HYPERGLYCEMIA Insulin Aspart 15 unit 08/04/16 08:00 08/06/16 08:00 Novolog Insulin SQ 09/03/16 07:59 Not Given AMINSULIN NERIS Lisinopril 20 mg 08/04/16 10:00 08/06/16 10:23 Zestril 20 Mg PO 09/03/16 09:59 20 mg BID NERIS Administration Loperamide HCl 2 mg 08/04/16 07:56 Imodium 2 Mg PO 09/03/16 07:55 Q4HPRN PRN DIARRHEA Lorazepam Confirm 08/03/16 22:01 Ativan 2 Mg/1 Ml Vial Administered 08/03/16 22:02 Dose 2 mg .ROUTE .STK-MED ONE Lorazepam Confirm 08/03/16 22:08 Ativan 2 Mg/1 Ml Vial Administered 08/03/16 22:09 Dose 2 mg .ROUTE .STK-MED ONE Lorazepam 1 mg 08/03/16 22:44 08/03/16 22:47 Ativan 2 Mg/1 Ml Vial IV 08/03/16 22:45 1 mg STAT ONE Administration Lorazepam 2 mg 08/03/16 22:44 08/03/16 22:47 Ativan 2 Mg/1 Ml Vial IV 08/03/16 22:45 2 mg STAT ONE Administration Lorazepam 1 mg 08/04/16 00:43 08/06/16 08:34 Ativan 2 Mg/1 Ml Vial IV 09/03/16 00:42 1 mg PRN PRN Administration ANXIETY/AGITATION Meloxicam 7.5 mg 08/04/16 10:00 08/06/16 10:23 Mobic 7.5 Mg PO 09/03/16 09:59 7.5 mg DAILY NERIS Administration Naproxen 250 mg 08/04/16 10:00 08/05/16 21:25 Naprosyn 500 Mg PO 09/03/16 09:59 250 mg BID NERIS Administration Pantoprazole Sodium 40 mg 08/04/16 10:00 08/06/16 10:21 Protonix 40mg Tablet PO 09/03/16 09:59 40 mg DAILY NERIS Administration Primidone 50 mg 08/04/16 10:00 08/05/16 21:25 Mysoline 50mg PO 09/03/16 09:59 50 mg TID NERIS Administration Ropinirole HCl 1 mg 08/04/16 22:00 08/05/16 21:25 Requip 0.5 Mg PO 09/03/16 21:59 1 mg HS NERIS Administration Sitagliptin Phosphate 50 mg 08/04/16 10:00 08/06/16 10:21 Januvia 50 Mg PO 09/03/16 09:59 50 mg DAILY NERIS Administration Intake & Output (Last 24 hours) 08/04/16 08/05/16 08/06/16 08/07/16 11:59 11:59 11:59 11:59 Intake Total 770 3589 3389 Output Total 300 1800 3200 Balance 470 1789 189 Weight 64.818 kg Orders (Last 24 hours) Category Date Time Status Full admit [Change to Full Admit] ROUTINE Care 08/06/16 08:55 Active Miscellaneous Nursing Order ROUTINE Care 08/06/16 08:57 Active Consult Neurology ROUTINE Cons 08/06/16 08:56 Active Discharge Routine Discharge 08/06/16 11:05 Ordered Discharge/Telephone Order Routine Discharge 08/06/16 11:05 Active Patient Care Notes (Last 24 hours) 08/06/16 12:20 Nursing Note by Kathy Santoyo Discharge at this time. Initialized on 08/06/16 12:20 - END OF NOTE 08/06/16 11:45 Nursing Note by Kathy Santoyo Called Ana nurse at [facility] with report. Initialized on 08/06/16 11:45 - END OF NOTE 08/06/16 11:21 Nursing Note by Kathy Santoyo Called pt's daughter, Marylou, made aware of pt transferring today to [facility]. Initialized on 08/06/16 11:21 - END OF NOTE 08/06/16 11:04 Nursing Note by Kathy Santoyo Called Dr Huerta with update on pt; new order received to transfer. Initialized on 08/06/16 11:04 - END OF NOTE 08/06/16 11:01 Nursing Note by Ofe Maher AM Novolog held after talking with pts primary nurse re: yesterday's drop in blood sugar (see NN). Januvia given as scheduled, pt in agreement with this plan. Initialized on 08/06/16 11:01 - END OF NOTE 08/06/16 11:00 Nursing Note by Aurea Morrow Called [facility] transfer center to get a bed at [facility] per Dr. Huerta. Initialized on 08/06/16 11:00 - END OF NOTE 08/06/16 08:20 (created 08/06/16 08:54) Nursing Note by Kathy Santoyo Dr called and received update on pt. Received new orders. Initialized on 08/06/16 08:54 - END OF NOTE 08/05/16 17:30 (created 08/05/16 18:27) Nursing Note by Kathy Santoyo Dr made aware of tremor activity. Initialized on 08/05/16 18:27 - END OF NOTE - Vitals & Intake/Output Vital Signs: Vital Signs Temperature 99.0 F 08/06/16 12:00 Pulse Rate 68 08/06/16 12:00 Respiratory Rate 18 08/06/16 12:00 Blood Pressure 192/86 08/06/16 12:00 O2 Sat by Pulse Oximetry 94 L 08/06/16 12:00 Intake & Output: Intake & Output 08/04/16 08/05/16 08/06/16 08/07/16 11:59 11:59 11:59 11:59 Intake Total 3389 Output Total 3200 Balance 189 - Lab Result Diagrams: 08/03/16 21:04 08/04/16 05:19 Lab Results-Last 24 Hrs: Accuchecks Date 08/06/16 Date 08/06/1608/05/16 Date 08/05/16 Time 11:30 Time 07:00 Time 16:30 Time 16:04 Accucheck Value: 119 Accucheck Value: 96 Accucheck Value: 156 Accucheck Value: 156 Micro Results-Entire Visit: Accuchecks Date 08/06/1608/06/1608/05/16 Date 08/05/16 Time 11:30 Time 07:00 Time 16:30 Time 16:04 Accucheck Value: 119 Accucheck Value: 96 Accucheck Value: 156 Accucheck Value: 156 Discharge Exam General Appearance: no apparent distress, alert Neurologic Exam: alert, oriented x 3, cooperative, normal mood/affect, nml cerebellar function, sensation nml, No motor deficits Skin Exam: normal color, warm, dry Eye Exam: PERRL, EOMI, eyes nml inspection Ears, Nose, Throat Exam: normal ENT inspection, pharynx normal, moist mucous membranes Neck Exam: normal inspection, non-tender, supple, full range of motion Respiratory Exam: normal breath sounds, lungs clear, No respiratory distress Cardiovascular Exam: regular rate/rhythm, normal heart sounds Gastrointestinal/Abdomen Exam: soft, No tenderness, No mass Extremity Exam: normal inspection, normal range of motion Back Exam: normal inspection, normal range of motion, No CVA tenderness, No vertebral tenderness Pelvic Exam: deferred Rectal Exam: deferred Final Diagnosis/Problem List - Final Discharge Diagnosis/Problem (1) Muscle spasm Status: Acute Assessment & Plan: will transfer patient to [facility] for further evaluation (2) Weakness Status: Resolved (3) Diabetes mellitus Status: Chronic (4) Hypertension Status: Chronic (5) Bradyarrhythmia Status: Chronic - Discharge Discharge Date: 08/06/16 Disposition: DC TO [facility] Condition: Stable Prescriptions: No Action Dextrose [Glucose] 4 tab PO DAILY PRN PRN Reason: Hypoglycemia Citalopram Hydrobromide [Citalopram HBr] 40 mg PO DAILY Loperamide HCl [Loperamide] 2 mg PO Q4HPRN PRN PRN Reason: Diarrhea Naproxen 250 mg PO BID Meloxicam 7.5 mg [Mobic 7.5 MG] 7.5 mg PO DAILY Gabapentin 300 mg PO BID Hydrochlorothiazide 12.5 mg PO DAILY Omeprazole 40 mg PO DAILY Oxybutynin Chloride 5 mg PO BID Tizanidine HCl 4 mg PO QHS Primidone 50 MG [Mysoline 50Mg] 50 mg PO TID Mirtazapine 30 mg [Remeron 30 mg] 30 mg PO QHS Ropinirole HCl [Requip] 1 mg PO QHS Eluxadoline [Viberzi] 75 mg PO BID Clonazepam [Klonopin] 1 mg PO BID Lisinopril 20 mg [Zestril 20 MG] 20 mg PO BID Simvastatin 10 mg PO DAILY Clopidogrel Bisulfate 75 mg [PLAVIX 75 MG Tablet] 1 tab PO DAILY Diltiazem HCl [Cardizem Cd] 120 mg PO DAILY Sitagliptin Phosphate 50 MG [Januvia 50 MG] 50 mg PO DAILY Insulin Aspart [NovoLOG Insulin] 15 unit SQ QAM Diphenoxylate HCl/Atropine [Diphenoxylate-Atrop 2.5-0.025] 2 tab PO QID Follow up with: MALLY HUERTA MD [Primary Care Provider] -
== END 2016-08-06 12:20 | disposition short-term general hospital (02) | DRG 556 ==
LOC: ED 20:26 → MED SURG 08-04 00:12 → OBSVTOIN 08-05 09:00
PROVIDERS: ADMIT General Practice; ATTEND General Practice
DX: M62.838 Other muscle spasm (principal); E11.9 Type 2 diabetes mellitus without complications; Z79.4 Long term (current) use of insulin; R53.1 Weakness; I10 Essential (primary) hypertension; I49.8 Other specified cardiac arrhythmias; G62.9 Polyneuropathy, unspecified; J44.9 Chronic obstructive pulmonary disease, unspecified; R25.1 Tremor, unspecified; E78.00 Pure hypercholesterolemia, unspecified; M19.90 Unspecified osteoarthritis, unspecified site; K21.9 Gastro-esophageal reflux disease without esophagitis; F32.9 Major depressive disorder, single episode, unspecified; K58.9 Irritable bowel syndrome, unspecified; Z85.828 Personal history of other malignant neoplasm of skin; Z72.0 Tobacco use
CPT/HCPCS: 36000; 36415; 70450; 71010; 80053; 81002; 82947; 82962; 83036; 85025; 87631; 93005; 93041; 93268; 96360; 96361; 96374; 99285; G0378; J1650; J2060; A9270-GY

== ENCOUNTER 2016-09-22 10:25 | Inpatient (IN) | payer MEDICARE ==
[2016-09-22] MEDS ORDERED: DUONEB 0.5-3 MG/3 ml Neb IH ONE ×2 (11:16→11:18)
--- NOTE | 2016-09-22 11:22 | ERPHSYRPT ---
- History of Present Illness Time Seen by Provider: 09/22/16 11:17 Source: patient Exam Limitations: no limitations Patient Subjective Stated Complaint: PT REPORTS HAVING A PRODUCTIVE HARSH PERSISTANT COUGH BEGINNING A WEEK AGO-REPORTS SORENESS ALL OVER DUE TO COUGH- UNSURE OF FEVER Triage Nursing Assessment: PT PALE WARM ET DRY-BLODD TINGED SPUTUM NOTED WITH COUGH-PERISSTANT COUGH NOTED-LUNGS TIGHT DIMINISHED WHEEZES NOTED Physician History: The patient is a 71-year-old female with her daughter complaining of a persistent harsh cough that began a week ago. She short of breath. She is unsure if she's had fevers. Her past medical history is significant for diabetes, hypertension, high cholesterol, GERD. Timing/Duration: week(s) (1) Cough Quality/Degree: productive cough Possible Cause: occasional episodes Modifying Factors: Improves With: coughing Associated Symptoms: cough, shortness of breath Allergies/Adverse Reactions: ezetimibe [From Zetia] Allergy (Verified 09/22/16 11:13) Home Medications: Citalopram Hydrobromide [Citalopram HBr] 40 mg PO DAILY 08/03/16 [History] Clonazepam [Klonopin] 1 mg PO BID 08/03/16 [History] Clopidogrel Bisulfate 75 mg [PLAVIX 75 MG Tablet] 1 tab PO DAILY 08/03/16 [History] Dextrose [Glucose] 4 tab PO DAILY PRN 08/03/16 [History] Diltiazem HCl [Cardizem Cd] 120 mg PO DAILY 08/03/16 [History] Gabapentin 300 mg PO BID 08/03/16 [History] Hydrochlorothiazide 12.5 mg PO DAILY 08/03/16 [History] Insulin Aspart [NovoLOG Insulin] 15 unit SQ QAM 08/03/16 [History] Lisinopril 20 mg [Zestril 20 MG] 20 mg PO BID 08/03/16 [History] Meloxicam 7.5 mg [Mobic 7.5 MG] 7.5 mg PO DAILY 08/03/16 [History] Mirtazapine 30 mg [Remeron 30 mg] 30 mg PO QHS 08/03/16 [History] Naproxen 250 mg PO BID 08/03/16 [History] Oxybutynin Chloride 5 mg PO BID 08/03/16 [History] Ropinirole HCl [Requip] 1 mg PO QHS 08/03/16 [History] Simvastatin 10 mg PO DAILY 08/03/16 [History] Tizanidine HCl 4 mg PO QHS 08/03/16 [History] Diphenoxylate HCl/Atropine [Diphenoxylate-Atrop 2.5-0.025] 2 tab PO QID [History] Sitagliptin Phosphate 50 MG [Januvia 50 MG] 50 mg PO DAILY 09/22/16 [ History] Hx Tetanus, Diphtheria Vaccination/Date Given: Yes Hx Influenza Vaccination/Date Given: Yes Hx Pneumococcal Vaccination/Date Given: Yes Immunizations Up to Date: Yes - Review of Systems Constitutional: No Fever, No Chills Eyes: No Symptoms Ears, Nose, & Throat: No Symptoms Respiratory: Cough, Dyspnea, Wheezing Cardiac: No Chest Pain, No Edema, No Syncope Abdominal/Gastrointestinal: No Abdominal Pain, No Nausea, No Vomiting, No Diarrhea Genitourinary Symptoms: No Dysuria Musculoskeletal: No Back Pain, No Neck Pain Skin: No Rash Neurological: No Dizziness, No Focal Weakness, No Sensory Changes Psychological: No Symptoms Endocrine: No Symptoms Hematologic/Lymphatic: No Symptoms Immunological/Allergic: No Symptoms All Other Systems: Reviewed and Negative - Past Medical History Pertinent Past Medical History: Yes Neurological History: Peripheral Neuropathy, Stroke ENT History: Other Cardiac History: Arrhythmia, High Cholesterol, Hypertension, Other Respiratory History: COPD Endocrine Medical History: Diabetes Type II Musculoskeletal History: Arthritis, Fractures GI Medical History: GERD, Pancreatitis, Other History: No Pertinent History Psycho-Social History: Depression Female Reproductive Disorders: No Pertinent History Other Medical History: Irritable Bowel Syndrome, hx of skin CA. 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 Hx of Hepatitis pt unsure which kind - Past Surgical History Past Surgical History: Yes Neuro Surgical History: No Pertinent History Cardiac: Pacemaker Respiratory: No Pertinent History Gastrointestinal: Cholecystectomy Genitourinary: No Pertinent History Musculoskeletal: Orthopedic Surgery Female Surgical History: No Pertinent History Other Surgical History: left elbow and left shoulder surgery with dale placement - Social History Smoking Status: Current every day smoker How long have you smoked: 40 yrs Exposure to second hand smoke: No Drug Use: none Patient Lives Alone: No - Female History Hx Now: No - Nursing Vital Signs Nursing Vital Signs: Initial Vital Signs Temperature 98.7 F Temperature Source Oral Pulse Rate 96 Respiratory Rate 28 Blood Pressure [] 133/63 Pain Intensity 7 - Physical Exam General Appearance: mild distress Eye Exam: PERRL/EOMI, eyes nml inspection Ears, Nose, Throat Exam: normal ENT inspection, TMs normal, pharynx normal, moist mucous membranes Neck Exam: normal inspection, non-tender, supple, full range of motion Respiratory Exam: diminished breath sounds, wheezing Cardiovascular Exam: regular rate/rhythm, normal heart sounds Gastrointestinal/Abdomen Exam: soft, No tenderness Pelvic Exam: not done Rectal Exam: not done Back Exam: normal inspection, No CVA tenderness, No vertebral tenderness Extremity Exam: normal inspection, normal range of motion Neurologic Exam: alert, oriented x 3, cooperative, normal mood/affect, sensation nml, No motor deficits Skin Exam: normal color, warm, dry, No rash Lymphatic Exam: No adenopathy SpO2 Interpretation: normal SpO2: 78 Oxygen Delivery: Room Air - Radiology Exams Chest X-ray Interpretation: Interpreted by me, Infiltrates (bilateral diffuse infiltrates.) Ordered Tests: Active Orders 24 hr Category Date Time Status IV Insertion STAT Care 09/22/16 11:23 Active CHEST 2 VIEWS (PA AND LAT) Stat Exams 09/22/16 11:24 Taken BLOOD CULTURE Stat Lab 09/22/16 11:16 Ordered CBC W DIFF Stat Lab 09/22/16 11:40 Completed CMP Stat Lab 09/22/16 11:40 Received D-DIMER QUANTITATION Stat Lab 09/22/16 11:40 Received Lactic Acid Stat Lab 09/22/16 11:30 Results TROPONIN Stat Lab 09/22/16 11:40 Received Respiratory Nebulizer STAT RT 09/22/16 11:18 Completed Medication Summary Generic Name Dose Route Start Last Admin Trade Name Freq PRN Reason Stop Dose Admin Ceftriaxone Sodium/Dextrose 1 g in 50 mls @ 100 mls/hr 09/22/16 12:06 Rocephin 1 Gm-D5w 50 Ml Bag IV 09/22/16 12:35 STAT ONE Sodium Chloride 1,000 mls @ 100 mls/hr 09/22/16 12:15 Sodium Chloride 0.9% 1000 Ml IV 10/22/16 12:14 .Q10H NERIS Discontinued Medications Generic Name Dose Route Start Last Admin Trade Name Freq PRN Reason Stop Dose Admin Albuterol/Ipratropium Confirm 09/22/16 11:16 Duoneb 0.5-3 Mg/3 Ml Neb Administered 09/22/16 11:17 Dose 3 ml IH .STK-MED ONE Albuterol/Ipratropium 3 ml 09/22/16 11:18 09/22/16 11:19 Duoneb 0.5-3 Mg/3 Ml Neb IH 09/22/16 11:19 3 ml STAT ONE Administration Benzonatate 100 mg 09/22/16 11:25 09/22/16 11:39 Tessalon Perles 100 Mg PO 09/22/16 11:26 100 mg TID PRN STA Administration Ceftriaxone Sodium/Dextrose Confirm 09/22/16 12:12 Rocephin 1 Gm-D5w 50 Ml Bag Administered 09/22/16 12:13 Dose 1 g in 50 mls @ ud IV .STK-MED ONE Methylprednisolone Sodium Succinate 125 mg 09/22/16 11:23 09/22/16 11:32 Solu-Medrol 125 Mg IV 09/22/16 11:24 125 mg STAT ONE Administration Methylprednisolone Sodium Succinate Confirm 09/22/16 11:30 Solu-Medrol 125 Mg Administered 09/22/16 11:31 Dose 125 mg .ROUTE .STK-MED ONE Morphine Sulfate 4 mg 09/22/16 12:07 Morphine Sulfate 4 Mg Inj IV 09/22/16 12:08 STAT ONE Morphine Sulfate Confirm 09/22/16 12:12 Morphine Sulfate 4 Mg Inj Administered 09/22/16 12:13 Dose 4 mg .ROUTE .STK-MED ONE Lab/Rad Data: Laboratory Result Diagrams 09/22/16 11:40 Laboratory Results 09/22/16 09/22/16 Range/Units 11:40 11:30 WBC 13.8 H (4.0-10.5) K/mm3 RBC 4.05 L (4.1-5.4) M/mm3 Hgb 12.8 (12.0-16.0) gm/dl Hct 37.7 (35-47) % MCV 93.1 (78-100) fl MCH 31.6 (26-32) pg MCHC 34.0 (32-36) g/dl RDW 13.0 (11.5-14.0) % Plt Count 203 (150-450) K/mm3 MPV 10.4 H (6-9.5) fl Gran % 87.5 H (36.0-66.0) % Lymphocytes % 5.9 L (24.0-44.0) % Monocytes % 6.4 (0.0-12.0) % Eosinophils % 0.1 (0.00-5.0) % Basophils % 0.1 (0.0-0.4) % Basophils # 0.01 (0-0.4) Lactic Acid 3.8 H (0.4-2.0) - Progress Progress: improved Air Movement: fair Blood Culture(s) Obtained: Yes Antibiotics given: Yes Discussed with : Elise Will see patient in: hospital (full admit) Counseled pt/family regarding: lab results, diagnosis, rad results - Departure Time of Disposition: 12:16 Departure Disposition: In-patient Admission Clinical Impression: Pneumonia Condition: Stable Critical Care Time: No
[2016-09-22] MEDS ORDERED: solu-MEDROL 125 MG IV ONE (11:23)
[2016-09-22] MEDS ORDERED: Tessalon Perles 100 MG PO STA (11:25)
[2016-09-22] MEDS ORDERED: solu-MEDROL 125 MG ONE (11:30)
[2016-09-22 11:34] LABS: Lactic Acid 3.8 (0.4-2.0)
[2016-09-22 11:51] LABS: BASOPHIL % 0.1 % (0.0-0.4); Eosinophil % 0.1 % (0.00-5.0); Granulocytes % 87.5 % (36.0-66.0); Lymphocytes % 5.9 % (24.0-44.0); Mean Cell Volume 93.1 fl (78-100); Mean Corpuscular Hemoglobin 31.6 pg (26-32); Mean Platelet Volume 10.4 fl (6-9.5); Monocytes % 6.4 % (0.0-12.0); Platelet Count 203 K/mm3 (150-450); Red Blood Count 4.05 M/mm3 (4.1-5.4); White Blood Count 13.8 K/mm3 (4.0-10.5)
[2016-09-22] MEDS ORDERED: ROCEPHIN 1 Gm-D5w 50 ml Bag** 1 G/50 ML IVPB IV ONE ×2 (12:06→12:12)
[2016-09-22] MEDS ORDERED: MORPHINE SULFATE 4 MG INJ IV ONE (12:07)
[2016-09-22 12:08] LABS: ALBUMIN 2.6 g/dL (3.4-5.0); ALKALINE PHOSPHATASE 137 U/L (46-116); ANION GAP 12.9 MEQ/L (5-15); BLOOD UREA NITROGEN 9 mg/dL (9-20); CHLORIDE 93 mEq/L (98-107); Carbon Dioxide 26.3 mEq/L (21-32); Glucose 215 MG/DL (70-110); Potassium 3.6 mEq/L (3.5-5.1); SGOT/AST 54 U/L (15-37); SGPT/ALT 54 U/L (12-78); SODIUM 129 mEq/L (136-145); Total Protein 6.6 gm/dL (6.4-8.2)
[2016-09-22] MEDS ORDERED: MORPHINE SULFATE 4 MG INJ ONE (12:12)
[2016-09-22 12:17] LABS: TROPONIN < 0.017 ng/ml (0.000-0.056)
[2016-09-22] MEDS: Sodium Chloride 0.9% 1000 ML 1,000 ML IV SCH ×2 (12:22→21:39)
[2016-09-22] MEDS: Zithromax 500 MG/ 250 ML NaCl Premix 500 MG/250 ML IVPB IV SCH (14:27)
[2016-09-22] MEDS: DUONEB 0.5-3 MG/3 ml Neb IH SCH ×3 (14:41→23:20)
[2016-09-22] MEDS: Robitussin AC Syrup Unit Dose Cup PO PRN ×2 (14:57→21:40)
[2016-09-22] MEDS ORDERED: PROVENTIL 2.5 MG/3 ML NEB IH SCH (15:00)
[2016-09-22] MEDS: NovoLOG Insulin SQ PRN ×2 (17:08→21:46)
[2016-09-22 18:15] LABS: A-aADO2 607; ALLEN TEST OK? YES; ARTERIAL BLD GAS O2 SATURATION 93.5 % (95-100); ARTERIAL BLOOD GAS BASE EXCESS -1.7 (-2.0-2.0); ARTERIAL BLOOD GAS FIO2 100 %; ARTERIAL BLOOD GAS PO2 59 mmHg (75-100); ARTERIAL BLOOD GAS pH 7.39 (7.35-7.45)
--- NOTE | 2016-09-22 21:01 | XRAY ---
Indication: Dyspnea. Multiple contiguous axial images obtained through the chest using 80 cc Isovue 370 contrast and PE protocol. Comparison: None There is satisfactory opacification of the pulmonary arteries to include the lobar and segmental branches. No filling defect or pulmonary embolus. Heart is not enlarged. No pericardial effusion. Left-sided dual-lead pacemaker. Aorta is mildly arteriosclerotic without aneurysm/dissection. 1.3 x 2.5 cm subcarinal node. No pathologic mediastinal/hilar lymphadenopathy. Examination of the lung parenchyma demonstrates diffuse patchy bilateral groundglass airspace opacities without consolidation or effusion. Partial differential includes pneumonia, inflammation, edema, or hemorrhage. Bony thorax intact with mild degenerative changes throughout the spine. Limited upper abdomen demonstrates diffuse fatty liver. Proximal abdominal aorta demonstrates 40-50% intraluminal narrowing due to eccentric soft arteriosclerotic disease. Impression: 1. Negative for pulmonary embolus. 2. Diffuse bilateral hazy groundglass airspace opacities potentially pneumonia, inflammation, edema, or hemorrhage. 3. Indeterminant prominent subcarinal lymph node. 4. Fatty liver. Comment: Preliminary interpretation was made by C. No discrepancy. CTDI 11.46
--- NOTE | 2016-09-22 21:03 | XRAY ---
Indication: Cough. Comparison: August 03, 2016. PA/lateral chest demonstrates new diffuse bilateral airspace disease without consolidation or large effusion. Heart is not enlarged and again demonstrates left-sided dual-lead pacemaker.
[2016-09-22] MEDS: Ditropan 5 MG PO SCH (21:37)
[2016-09-22] MEDS: ENOXAPARIN SODIUM SQ SCH (21:37)
[2016-09-22] MEDS: NEURONTIN 300 MG PO SCH (21:38)
[2016-09-22] MEDS: Naprosyn 500 MG PO SCH (21:38)
[2016-09-22] MEDS: Lomotil PO SCH (21:39)
[2016-09-22] MEDS: Zestril 20 MG PO SCH (21:46)
[2016-09-22] MEDS ORDERED: REMERON 30 MG PO SCH (22:00)
[2016-09-22] MEDS ORDERED: Requip 0.5 MG PO SCH (22:00)
[2016-09-23] MEDS: DUONEB 0.5-3 MG/3 ml Neb IH SCH ×3 (03:25→10:30)
[2016-09-23] MEDS: Robitussin AC Syrup Unit Dose Cup PO PRN ×2 (04:45→09:23)
[2016-09-23] MEDS: Sodium Chloride 0.9% 1000 ML 1,000 ML IV SCH (07:45)
[2016-09-23] MEDS ORDERED: Dex4 Glucose 4 GM TABLET PO PRN (07:57)
[2016-09-23] MEDS ORDERED: NovoLOG Insulin SQ SCH (08:00)
[2016-09-23 08:33] LABS: A-aADO2 551; ALLEN TEST OK? YES; ARTERIAL BLD GAS O2 SATURATION 95.8 % (95-100); ARTERIAL BLOOD GAS FIO2 95 %; ARTERIAL BLOOD GAS PO2 76 mmHg (75-100)
[2016-09-23 09:05] LABS: Mean Cell Volume 94.1 fl (78-100); Mean Platelet Volume 10.3 fl (6-9.5); Platelet Count 180 K/mm3 (150-450); Red Blood Count 3.72 M/mm3 (4.1-5.4); Red Cell Distribution Width 13.5 % (11.5-14.0); White Blood Count 10.8 K/mm3 (4.0-10.5)
[2016-09-23 09:07] LABS: Mean Corpuscular Hemoglobin 32.2 pg (26-32)
[2016-09-23] MEDS: ENOXAPARIN SODIUM SQ SCH (09:14)
[2016-09-23] MEDS: Naprosyn 500 MG PO SCH (09:18)
[2016-09-23] MEDS: Zestril 20 MG PO SCH (09:18)
[2016-09-23] MEDS: Ditropan 5 MG PO SCH (09:19)
[2016-09-23] MEDS: NEURONTIN 300 MG PO SCH (09:19)
[2016-09-23] MEDS: Lomotil PO SCH ×2 (09:21→10:44)
[2016-09-23 09:32] LABS: ALKALINE PHOSPHATASE 114 U/L (46-116); BLOOD UREA NITROGEN 9 mg/dL (9-20); CHLORIDE 104 mEq/L (98-107); Carbon Dioxide 29.5 mEq/L (21-32); Glucose 252 MG/DL (70-110); Potassium 4.4 mEq/L (3.5-5.1); SGOT/AST 74 U/L (15-37); SGPT/ALT 35 U/L (12-78); SODIUM 139 mEq/L (136-145); Total Protein 5.6 gm/dL (6.4-8.2)
[2016-09-23 09:34] LABS: TROPONIN < 0.017 ng/ml (0.000-0.056)
[2016-09-23] MEDS: Zithromax 500 MG/ 250 ML NaCl Premix 500 MG/250 ML IVPB IV SCH (09:43)
[2016-09-23] MEDS ORDERED: Cardizem CD 120 MG PO SCH (10:00)
[2016-09-23] MEDS ORDERED: NON-FORMULARY ITEM (Citalopram Hydrobromide [Citalopram Hbr] 40 MG) PO SCH (10:00)
[2016-09-23] MEDS ORDERED: Januvia 50 MG PO SCH (10:00)
[2016-09-23] MEDS ORDERED: PLAVIX 75 MG Tablet PO SCH (10:00)
[2016-09-23] MEDS ORDERED: NON-FORMULARY ITEM (Hydrochlorothiazide [Hydrochlorothiazide] 12.5 MG) PO SCH (10:00)
[2016-09-23] MEDS ORDERED: NON-FORMULARY ITEM (Clonazepam [Klonopin] 1 MG) PO SCH (10:00)
[2016-09-23] MEDS ORDERED: Klonopin 0.5 MG PO SCH (10:00)
[2016-09-23] MEDS ORDERED: ROCEPHIN 1 Gm-D5w 50 ml Bag** 1 G/50 ML IVPB IV SCH (10:00)
[2016-09-23] MEDS ORDERED: ceLEXa 20 MG PO SCH (10:00)
[2016-09-23] MEDS ORDERED: hydroDIURIL 25 MG PO SCH (10:00)
[2016-09-23] MEDS ORDERED: Mobic 7.5 MG PO SCH (10:00)
[2016-09-23 12:16] VITALS: BP 102/55; PULSE 68; O2SAT 98
[2016-09-23] MEDS ORDERED: Zocor 10MG PO SCH (22:00)
[2016-09-23] MEDS ORDERED: Zanaflex 4 MG PO SCH (22:00)
--- NOTE | 2016-09-25 07:59 | HP ---
CHIEF COMPLAINT: Shortness of breath and cough. HISTORY OF PRESENT ILLNESS: The patient is a 71 year-old white female who reports that over the past week she has been having problems with increasing shortness of breath and harsh cough. She reports her throat getting sore as well. The patient reports that she had been in the hospital a few weeks ago here and then eventually transferred to [facility] but could not get any more information than that as she appears to be somewhat of a poor historian. The patient does report a past medical history of pacemaker implantation. She reports she saw Dr. Reza in the past but the only other physician she sees on a regular basis is Dr. Barraza. PAST MEDICAL/SURGICAL HISTORY: HOME MEDICATIONS: Citalopram, clonazepam, Plavix, diltiazem, gabapentin, hydrochlorothiazide, NovoLog insulin, lisinopril, meloxicam, Remeron, Naproxen, oxybutynin, Requip, Simvastatin, Januvia. ALLERGIES: ZETIA. PHYSICAL EXAMINATION: Revealed a well nourished, well developed white female who appears to be somewhat dusky. Her vital signs on admission to the emergency room showed temperature 98.7F oral with a pulse of 96, respiratory rate 28, blood pressure 133/63. Her O2 saturation was noted to be at 78% on room air. HEENT: Normocephalic, atraumatic. She is wearing nasal BIPAP currently. Oropharynx is dry. NECK: Supple without lymphadenopathy, thyromegaly or JVD. CHEST: Revealed diminished air movements particularly on the right side. No significant wheezes are heard presently. HEART: Regular rate and rhythm without murmurs, rubs or gallops. ABDOMEN: Soft, nontender, nondistended without hepatosplenomegaly or masses. EXTREMITIES: Without clubbing or cyanosis. There is some edema present. NEUROLOGIC: The patient appears to be alert and oriented x3. No focal deficits are obvious. LAB DATA AND TESTS: Laboratory studies from the emergency room showed lactic acid of 3.8. White blood cell count 13,800 with 87.5% granulocytes. The patient's hemoglobin was 12.8, PLT count 203,000. Influenza A/B and respiratory syncytial virus were negative. D-dimer was positive at 0.858. She had a metabolic panel showing nonfasting glucose of 215, BUN 9, creatinine 1.04. Sodium low at 129, potassium was normal. Liver enzymes were slightly elevated SGOT of 54, alkaline phosphatase 137, troponin less than 0.017. She had a blood gas performed that showed a pH of 7.39, pCO2 38, pO2 59. The patient's CT scan of the chest due to the positive D-dimer was negative for pulmonary embolism and showed diffuse bilateral hazy ground glass appearance opacity potential pneumonia, indeterminate prominent subcarinal lymph node was present and fatty liver. ASSESSMENT: A patient with pneumonia and beginning respiratory depression, possible impending respiratory failure. The patient has requested to be made SCO. She has been placed on IV antibiotics, oxygen support, BIPAP. We have discussed with the patient possibly transferring her for better pulmonary care. We have also discussed with her the possibility that she might end up needing to be intubated and on ventilator management and she is not sure how she feels about this presently. I have asked her daughter to come in for further discussion about which direction to take her care at this time. The patient's prognosis is guarded at this time.
== END 2016-09-23 12:40 | disposition short-term general hospital (02) | DRG 195 ==
LOC: ED 10:25 → MED SURG 12:53
PROVIDERS: ADMIT General Practice; ATTEND General Practice
DX: J18.9 Pneumonia, unspecified organism (principal); I10 Essential (primary) hypertension; J44.9 Chronic obstructive pulmonary disease, unspecified; E11.9 Type 2 diabetes mellitus without complications; Z79.4 Long term (current) use of insulin; Z95.0 Presence of cardiac pacemaker; K58.9 Irritable bowel syndrome, unspecified; Z79.899 Other long term (current) drug therapy; Z86.73 Personal history of transient ischemic attack (TIA), and cerebral infarction without residual deficits
CPT/HCPCS: 36000; 36415; 36600; 71020; 71260; 80053; 82375; 82803; 82962; 83605; 83880; 84484; 85025; 85027; 85379; 87040; 87631; 94002; 94640; 94762; 96360; 96365; 96374; 96376; 99285; J0456; J0696; J1650; J2270; J2930; A9270-GY